=== PATIENT | female | born 1985 | race Hispanic/Latino ===

== ENCOUNTER 2017-05-20 09:40 | Observation (INO) | payer OTHER ==
[2017-05-18 12:04] VITALS: BMI 18.3
[2017-05-20 10:16] LABS: HEMOGLOBIN 12.4 g/dL (12.0-16.0); MEAN CELL VOLUME 92.5 fl (81.0-99.0); MEAN CORPUSCULAR HEMOGLOBIN 30.9 pg (27.0-31.0); MEAN CORPUSCULAR HGB CONC 33.4 g/dL (33.0-37.0); RBC 4.03 Mil/uL (3.80-5.20); RED CELL DISTRIBUTION WIDTH 12.7 % (11.5-14.5); WHITE BLOOD COUNT 5.2 K/uL (4.8-10.8)
[2017-05-20] MEDS ORDERED: Bupivacaine 0.5% Inj(30mL) ONE (13:04)
[2017-05-20] MEDS ORDERED: ceFAZolin IV 1 gm in Dextrose 1 GM/50 ML BAG IVPB ONE (13:04)
[2017-05-20] MEDS ORDERED: Sevoflurane - Inhalation Anesthetic Liq (250 ml) ONE (13:23)
[2017-05-20] MEDS ORDERED: Lidocaine 1% 5ml Abboject IV ONE (13:27)
[2017-05-20] MEDS ORDERED: Midazolam 2 MG/2 ML VIAL ONE (13:33)
[2017-05-20] MEDS ORDERED: Propofol 10 mg/ml Inj (20 ML) ONE (13:33)
[2017-05-20] MEDS ORDERED: Rocuronium 10 mg/ml (5 ml) ONE ×2 (13:34→15:02)
[2017-05-20] MEDS ORDERED: Lactated Ringer's 1,000 ML IV ONE ×2 (14:09→14:12)
[2017-05-20] MEDS ORDERED: Bupivacaine 0.5% 50 ML IJ ONE ×2 (14:46)
[2017-05-20] MEDS ORDERED: Dexamethasone 4 mg/1 ml ONE (14:58)
[2017-05-20] MEDS ORDERED: HYDROmorphone 0.5 mg/0.5 ml ISec IVP PRN (16:03)
[2017-05-20] MEDS ORDERED: Oxycodone/Acetaminophen 5/325 mg Tab PO PRN (16:43)
[2017-05-21 00:40] VITALS: RESP 18
[2017-05-21 06:09] VITALS: O2SAT 99
[2017-05-21 11:49] VITALS: BP 109/69; PULSE 72; TEMP 98.8
--- NOTE | 2017-05-25 08:57 | PCM.OP ---
Operative Report - Operative Report Date of Surgery/Procedure: 05/20/17 Time of Surgery/Procedure: 08:00 Surgeon: Dr. Eulogio Martin Stock Pitcher: Dr. Joel Marrufo Anesthesia/Sedation: general/Dr. Vazquez Pre-Operative Diagnosis: abdominal pain and endometriosis Post-Operative Diagnosis: endometriosis involving the rectum (times two) Indication for Surgery: as above Operative Findings: as above Procedure/Operation Description: 1-Excison multiple endometriosis of the rectum (times two). Brief History: This 31 year old woman ahd already been brought to the operating room by Dr. Marrufo when he noted multiople lesions on the rectum consistent with endometriosis. Intraoperative general surgery consultation was requested. Description of the Procedure: Dr. Marrufo had already initiated the robotic procewdure (separate dictation Dr. Marrufo). After taking control of the robotic console the rectum was retracted cephalad and the two lesion were noted on the anterior surface of the rectum. The first most proximal lesion was incised circumferentially with electrocautery and using blunt and sharp dissection it was excised en-bloc from the rectal wall. The first lesion was marked and sent to pathology as a separate specimen. The seconmd, more distal lesion, waas excided en-bloc in a similar manner and sent to pathology as a separate specimen. The operative areas were examined and hemostasis was deemed adeqaute. The operation was then turned over to Dr. Marrufo (separate dictation Dr. Marrufo). Estimated Blood Loss: 5 cc Complications: none Discharge & Condition: stable
--- NOTE | 2017-06-07 13:30 | OP ---
PROCEDURE DATE: 05/20/17 SURGEON: Joel Marrufo MD GLASS FORMING ENGINEER: Mario Krishnan ANESTHESIA: General Endo ANESTHESIOLOGIST: Niko Vazquez MD PREOPERATIVE DIAGNOSES: PROVIDES POSTOPERATIVE DIAGNOSES: MD ANDREW PROCEDURE PERFORMED: Da Susan Laparoscopy for endometriosis, hysteroscopy. Dr. Martin performed, excision multiple endometriosis of the rectum (times two) COMPLICATIONS: None. SAMPLES: Sent to pathology. DRAINS: Roberts catheter. ESTIMATED BLOOD LOSS: Minimal. HISTORY: PROVIDES HISTORY DESCRIPTION OF PROCEDURE: After the consent was obtained, the patient was brought to the operating room and placed on the operating table in the dorsal supine position. An intravenous catheter was started; antibiotics were administered. After satisfactory anesthesia was induced, the patient was then positioned in dorsal lithotomy position, and every area prone to pressure was padded. The external genitalia in the abdomen was sterilely prepped and draped in the standard fashion and a time out was performed. At this point, the cystoscope was introduced in the bladder under direct vision, a bacbock-cystoscopy was performed and attention was paid to both ureteral orifices, which were in a normal anatomical position. The left ureteral orifice was then catheterized with a Romanian open ending ureteral catheter. A solution of indocyanine green of 5 mL was injected into the left ureter and after the ureteral catheter was advanced into the distal ureter. The ureteral catheter was then removed. Attention was paid to the right ureteral orifice and at this point, a urethral catheter was advanced to the level of the right distal ureter. An additional 4 mL of indocyanine green were injected into the right ureter. The ureteral catheter was then removed. The bladder was then inspected and noted to be free of tumors, stones, or bleeding sources. The cystoscope was then removed and a 16 Romanian Roberts catheter was placed. At this point, attention was turned to the vaginal area, where a speculum was placed in the vagina. The anterior lip of the cervix was grasped. The uterus was dilated and the hysteroscope was inserted in the uterine cavity revealing a normal size cavity with both ureters also being visualized. At this point, the hysteroscope was removed, and a Valtchev uterine manipulator was placed in the uterus, and the attention was turned to the abdomen. An incision was made below the umbilicus with a standard open laparoscopy technique. The abdominal cavity was then entered in a blunt fashion. Under direct visualization, additional trocars were inserted, left upper quadrant, right upper quadrant, and mid quadrant. At this point, the da Susan robot was brought on to the field and it was docked. The findings were followed. There were multiple areas which were slightly erythematous suggestive of endometriosis, mostly in the posterior cervix and the right and the left pelvic side wall. There were adhesions between the sigmoid colon and the descending colon attaching the concerning colon to the left pelvic sidewall impeding the complete vision on the left pelvic side. Dr. Eulogio Martin from General Surgery was called in for excision multiple endometriosis of the rectum. He will dictate this part separately. At this point, after we were able to see both sides, the ovaries were inspected and appearing to be normal and tubes were also inspected. Attention was on the left-hand side where the fluorescent technology was used to identify the ureter on the left-hand side. The peritoneum overlying the ureter was picked up, it was lifted utilizing a surgical grasper and the retroperitoneal space was entered. The ureter was gently dissected off and the area of peritoneum was sent to pathology, dissected in toto. Similarly, on the right-end side after examined the right ovarian tube, again, the right ureter was identified. The peritoneum overlying the right ureter was elevated. The retroperitoneal space was entered and the wide area of peritoneum was also excised with a partial pelvic sidewall peritonectomy being performed. At this point, we checked with fluorescence for both ureters, they are appeared to be in perfect condition. A peritoneum was also excised from the posterior cervical area. Area suspicious for superficial endometriosis was bipolar coagulated in the posterior cul-de- sac. At this point, it was checked for hemostasis, and appeared to be excellent. The pelvis was irrigated. The ureter appeared to be in excellent condition and intact and undamaged. The bowel was also in perfect condition. At this point, the robot was undocked, the abdomen was desufflated, the instruments were removed. The incisions were closed in layers with 0 PDS for the fascia. The skin was closed with 4-0 Monocryl and a surgical glue. All the instruments were removed from the vagina. The cervix was inspected and appeared to be in excellent condition. Atthis point, the patient was woken up and taken to the recovery room in excellent condition. MD JOHN Camilo
--- NOTE | 2017-06-07 14:17 | OP ---
PROCEDURE DATE: 05/20/2017 SURGEON: Joel Marrufo MD. ASSISTED BY: Eulogio Martin MD. PREOPERATIVE DIAGNOSES: Pelvic pain, dysmenorrhea, dyspareunia, bladder pain, rectal pain, rule out endometriosis. POSTOPERATIVE DIAGNOSIS: Pelvic endometriosis, stage II to III. PROCEDURE PERFORMED: Hysteroscopy, dilatation and curettage, cystoscopy with bilateral ureteral catheterization, injection of dye, robotic laparoscopy, excision of endometriosis, ablation of endometriosis, bilateral ureterolysis and excision of perirectal mass by Dr. Eulogio Martin from General Surgery. TYPE OF ANESTHESIA: General endotracheal. ESTIMATED BLOOD LOSS: Minimal. SAMPLES: A D and C sample, sample from right pelvic sidewall, posterior cervical, right perirectal and anterior rectal endometriosis. COMPLICATIONS: None. INDICATION FOR THE PROCEDURE: The patient is a 31-year-old who presented with a history of pelvic pain, dysmenorrhea, dyspareunia. She had examination findings suggestive of endometriosis including point tenderness and peritoneal signs in the retrocervical area. She was counseled with regards to the risks and benefits of the procedure and the likelihood of the procedure to solve her problems. She signed the consent prior to the surgery and she was taken to the OR. DESCRIPTION OF PROCEDURE: After adequate anesthesia was obtained, patient was placed in the dorsal lithotomy position. She was prepped and draped. The surgeon was gowned and gloved. A timeout was taken according to the hospital procedure. At this point, under direct visualization, a cystoscope was inserted into the bladder and a pancystoscopy was performed. There were no stones or masses in the bladder. Both ureteral orifices were in the normal anatomical position. An open-ended catheter was inserted to the left ureter all the way to the distal ureter and 5 mL of IC Green were injected. At this point, the catheter was removed and attention was on the right ureter where an open-ended catheter was inserted into the right ureter all the way to the distal ureter and 5 mL of IC Green were injected. The cystoscope was removed and it was replaced by a 16-[place] Roberts. At this point, a speculum was placed in the vagina and the anterior lip of the cervix was grasped. The cervix was dilated and a hysteroscope was inserted into the uterine cavity. The uterine cavity appeared to be in normal size. There appears to be some areas that were slightly inflammatory suggestive of endometritis. A gentle D and C was performed and sample was sent to Pathology. At this point, after placing uterine manipulator in the uterus, attention was on the abdomen where after re-gowning and re-gloving, an open laparoscopy technique was used to enter the abdomen. The peritoneum was entered in a blunt fashion and a cannula was placed. The abdomen was insufflated and under direct visualization, 3 additional trocars were inserted in left upper quadrant, left mid quadrant and right upper quadrant. At this point, the da Susan Xi robot was docked. The upper abdomen was examined, appeared to be normal. The pelvis was visualized with the following findings: Both ovaries had multiple endometriosis implants. There were significantly deep invasive endometriosis implants both on the left and right pelvic sidewalls and in the posterior aspect of the cervix and in the left perirectal area. Attention was first on the left hand side where after elevating the ovary, areas of endometriosis on the ovary were ablated. At this point, the ureter was identified using fluorescent technology and the retroperitoneum was entered. The peritoneum was medialized and the ureter was lateralized away from the disease and the peritoneum was the tissue containing endometriosis. The dissection progresses and an area of endometriosis in the left ovarian fossa was also excised, also quite large area all the way from basically the lower limit of the utero-ovarian ligament all the way down to the posterior aspect of the cervix in the rectovaginal area. This area also was dissected off and sent to Pathology. At this point, attention was on the right hand side. The right ovary also had multiple implants of endometriosis which were ablated. A full dissection was performed on the right hand side where the retroperitoneal space was entered. The ureter was lateralized, the peritoneum was medialized and a full dissection was performed all the way from the lower edge of the utero-ovarian ligament all the way to the uterosacral ligament and a sample was dissected and sent it of to pathology. An additional area of endometriosis was removed from the posterior cervix. The posterior aspect of the uterus with inflammatory areas which were ablated completely. Dr. Martin was called in to dissect an area of endometriosis on the anterior rectum, which he will separately. At this point, it was checked for hemostasis that appeared to be excellent. All other parts of the pelvis and the abdomen were examined for presence of endometriosis which was negative. The pelvis was irrigated. There were small bleeding. Hemostasis was excellent. The robot was undocked. The instruments were removed. The abdomen desufflated. The incision was closed in layers with 0 PDS for the fascia and 4-0 Monocryl for the skin. At the end of the procedure, all tapes and instrument counts were correct. The patient tolerated the procedure well, was taken to the recovery room in excellent condition. Joel Marrufo MD
== END 2017-05-21 10:25 | disposition home or self-care (01) ==
LOC: H.OPSURG 09:40 → H.PEDS 20:35
PROVIDERS: ADMIT Obstetrics & Gynecology Reproductive Endocrinology; ATTEND Obstetrics & Gynecology Reproductive Endocrinology
DX: N80.5 Endometriosis of intestine (principal); N94.6 Dysmenorrhea, unspecified; N94.10 Unspecified dyspareunia; N80.3 Endometriosis of pelvic peritoneum; N80.1 Endometriosis of ovary; N80.0 Endometriosis of uterus
CPT/HCPCS: 36415; 45171; 49203; 58558; 85027; 86850; 86900; 88305; C1729; G0378; J0690; J1100; J2250; J2704; J3010; J7030; J7040; J7120